=== PATIENT | male | born 1990 | race Caucasian/White ===

== ENCOUNTER → 2023-10-20 | Outpatient (CLI) | payer BC ==
--- NOTE | 2023-10-20 17:41 | CT ---
EXAMINATION TYPE: CT sinus wo con CT DLP: 551.6 mGycm, Automated exposure control for dose reduction was used. DATE OF EXAM: 10/20/2023 4:50 PM COMPARISON: None CLINICAL INDICATION:Male, 33 years old with history of J32.0 CHRONIC MAXILLARY SINUSITIS; , sinusitis TECHNIQUE: Multiple thin axial images were obtained through the paranasal sinuses without the use of IV contrast. Additional coronal and sagittal reformatted images were submitted for evaluation. Contrast used: none Oral contrast used: none FINDINGS: Frontal sinuses: Normally developed and aerated. Frontal Recess: Clear Maxillary Sinuses: Normally developed and aerated. Retention cyst in the inferior maxillary sinuses b ilaterally. Maxillary Infundibula([facility]): Clear, No Ozzie cells identified. Osseous spurring along the inferior m edial orbital aguayo. Ethmoid sinuses: Mild mucosal thickening of the ethmoid air cells bilaterally anterior greater than p osterior.. Ethmoidal notch: Protected and abutting the lateral lamina. Sphenoid sinuses: Normally developed and aerated. There is sellar sphenoid sinus pneumatization witho ut evidence of dehiscence. No dehiscence of carotid canal. No evidence of optic nerve dehiscence wit hin the sphenoid sinus. No evidence of Onodi cells. Sphenoethmoidal recesses: Clear. Nasal septum: Mildly deviated leftward with osseous spur between the middle and inferior turbinate Nasal Turbinates: Mucosal thickening of the turbinates bilaterally predominantly in the inferior midd le turbinates. Mastoid air cells & middle ears: The air cells are clear. The middle ears are grossly unremarkable. Modified Soft tissues & Brain: Partially seen without gross abnormality. Globes are intact. Other: Cribriform plate demonstrates symmetric Keros classification type 2 cribriform plate. No evidence of bony dehiscence of skull base. Lamina papyracea is intact without evidence of remote orbital fracture or orbital prolapse into the e thmoid sinus. IMPRESSION: 1. Mild paranasal sinus disease.. 2. The ostiomeatal units, frontonasal and sphenoethmoidal recesses are clear. 3. Minimally deviated nasal septum leftward.
== END | disposition home or self-care (01) ==
LOC: RADCTMAIN 16:24
PROVIDERS: ATTEND Otolaryngology
DX: J32.0 Chronic maxillary sinusitis (principal); J34.2 Deviated nasal septum
CPT/HCPCS: 70486